=== PATIENT | male | born 2000 | race African-American/Black ===

== ENCOUNTER 2022-02-02 08:00 | Outpatient (CLI) | payer OTHER ==
[2022-02-02 21:58] LABS: CHLAMYDIA TRACHOMATIS DNA POSITIVE (NEGATIVE); NEISSERIA GONORRHOEAE DNA NEGATIVE (NEGATIVE)
[2022-02-03 04:09] LABS: HCV AB <0.1 s/co ratio (0.0-0.9); RPR Non Reactive (Non Reactive)
[2022-02-03 06:08] LABS: HIV SCREEN 4TH GENERATION Non Reactive (Non Reactive); HSV 2 IGG TYPE SPEC <0.91 index (0.00-0.90)
[2022-02-03 18:07] LABS: HSV IGM I/II COMBINATION <0.91 Ratio (0.00-0.90)
== END 2022-02-02 23:59 | disposition home or self-care (01) ==
LOC: LAB.N 08:00
PROVIDERS: ATTEND Family Medicine
DX: R36.9 Urethral discharge, unspecified (principal)
CPT/HCPCS: 36415; 86592; 86695; 86696; 86803; 87389; 87491; 87536; 87591; 87661

== ENCOUNTER 2022-02-27 08:00 | Outpatient (CLI) | payer OTHER ==
--- NOTE | 2022-02-28 09:11 | XRAY Report ---
PROCEDURE: Finger(s) LT INDICATIONS: L INDEX FINGER PX TECHNIQUE: AP hand, 3 views of the second finger(s) acquired. COMPARISON: None FINDINGS: Bones: Calcifications are noted at the angela of the second middle phalanx at the PIP joint. No suspicio us bony lesions. Soft tissues: No suspicious soft tissue calcifications. IMPRESSION: Calcifications at the base of the second middle phalanx at the PIP joint suggestive of avulsion fract ure. Reviewed by: Rachana De Jesus MD on 02/28/2022 9:10 AM PDT Approved by: Rachana De Jesus MD on 02/28/2022 9:10 AM PDT Station ID: [id number]
== END 2022-02-27 23:59 | disposition home or self-care (01) ==
LOC: DI.N 08:00
PROVIDERS: ATTEND Physician Assistant
DX: R22.30 Localized swelling, mass and lump, unspecified upper limb (principal)

== ENCOUNTER 2023-08-27 07:45 | Outpatient (CLI) | payer OTHER ==
--- NOTE | 2023-08-27 17:05 | XRAY Report ---
PROCEDURE: Knee 3 View LT INDICATIONS: SPRAIN OF LEFT KNEE LATERAL COLLATERAL LIGAMENT TECHNIQUE: 3 views of the knee(s) were acquired. COMPARISON: None. FINDINGS: Bones: No fractures or dislocations. No suspicious bony lesions. Soft tissues: No knee joint effusion. No suspicious soft tissue calcifications or masses. IMPRESSION: No acute bony abnormality. If there remains a high clinical concern for fracture, consider cross-sect ional imaging now. If pain persists, consider repeat x-ray in 10-14 days or cross-sectional imaging. Reviewed by: Yudelka Salcido MD on 08/27/2023 5:03 PM PST Approved by: Yudelka Salcido MD on 08/27/2023 5:03 PM PST Station ID: [id number]
== END 2023-08-27 08:00 | disposition home or self-care (01) ==
LOC: DI.N 07:45
PROVIDERS: ATTEND Physician Assistant Medical
DX: S83.422A Sprain of lateral collateral ligament of left knee, initial encounter (principal)

== ENCOUNTER 2024-05-15 11:48 | Emergency (ER) | payer OTHER ==
--- NOTE | 2024-05-15 11:57 | ED Physician Documentation ---
PD HPI MHE - Stated complaint Stated Complaint: SI - History obtained from History obtained from: Patient - Additional information Additional information: Otherwise healthy 24-year-old gentleman who is active duty in the [employer] started develop mostly auditory hallucinations about a month ago. They have become quite troubling to him and since this weekend he has developed thoughts of suicide with self-harm with plan to shoot himself and he does have access to a gun. He has not been under any mental health treatment and is taking no medications. He thinks someone in his family might have bipolar disorder but he does not know the details. PD PAST MEDICAL HISTORY - Present Medications Home Medications: Ambulatory Orders Medication Instructions Recorded Confirmed No Known Home Medications 05/15/24 05/15/24 - Allergies Allergies/Adverse Reactions: Allergies Allergy/AdvReac Type Severity Reaction Status Date / Time No Known Drug Allergies Allergy Verified 05/15/24 12:05 PD ED PE NORMAL - Vitals Vital signs reviewed: Yes - General General: Alert and oriented X 3, No acute distress - HEENT HEENT: PERRL, EOMI - Neck Neck: Supple, no meningeal sign, No bony TTP - Cardiac Cardiac: RRR, No murmur - Respiratory Respiratory: No respiratory distress, Clear bilaterally - Abdomen Abdomen: Non tender - Extremities Extremities: No deformity, No tenderness to palpate - Neuro Neuro: Alert and oriented X 3 Eye Opening: Spontaneous Motor: Obeys Commands Verbal: Oriented GCS Score: 15 - Psych Psych: Other (Mildly blunted affect with poor eye contact) Results - Vitals Vitals: Vital Signs - 24 hr 05/15/24 11:59 Temperature 36.7 C Heart Rate 69 Respiratory 20 Rate Blood Pressure 142/86 H O2 Saturation 100 Oxygen O2 Source Room air - Labs Labs: Laboratory Tests 05/15/24 05/15/24 05/15/24 12:05 12:26 12:26 WBC 3.4 L RBC 4.29 L Hgb 14.2 Hct 43.6 MCV 101.6 H MCH 33.1 H MCHC 32.6 RDW 12.6 Plt Count 207 MPV 9.8 Neut # (Auto) 1.6 Lymph # (Auto) 1.4 L Clay # (Auto) 0.3 Eos # (Auto) 0.1 Baso # (Auto) 0.0 Absolute Nucleated RBC 0.00 Nucleated RBC % 0.0 Sodium 135 Potassium 4.1 Chloride 102 Carbon Dioxide 29 Anion Gap 4.0 L BUN 13 Creatinine 1.3 Estimated GFR (MDRD) 82 L Glucose 94 Calcium 9.7 Magnesium 1.7 Total Bilirubin 0.3 AST 19 ALT 20 Alkaline Phosphatase 69 Total Creatine Kinase 285 H Total Protein 7.7 Albumin 4.4 Globulin 3.3 Albumin/Globulin Ratio 1.3 Lipase 70 TSH 1.38 Urine Color YELLOW Urine Clarity CLEAR Urine pH 7.0 Ur Specific Gipsy 1.020 Urine Protein NEGATIVE Urine Glucose (UA) NEGATIVE Urine Ketones NEGATIVE Urine Occult Blood NEGATIVE Urine Nitrite NEGATIVE Urine Bilirubin NEGATIVE Urine Urobilinogen 1 (NORMAL) Ur Leukocyte Esterase NEGATIVE Ur Microscopic Review NOT INDICATED Urine Culture Comments NOT INDICATED Salicylates < 1.5 Urine Opiates Screen NEGATIVE Ur Buprenorphine Scrn NEGATIVE Ur Oxycodone Screen NEGATIVE Urine Methadone Screen NEGATIVE Acetaminophen 0.1 Ur Barbiturates Screen NEGATIVE Ur Tricyclics Screen NEGATIVE Ur Phencyclidine Scrn NEGATIVE Ur Amphetamine Screen NEGATIVE U Methamphetamines Scrn NEGATIVE U Benzodiazepines Scrn NEGATIVE Urine Cocaine Screen NEGATIVE U Cannabinoids Screen NEGATIVE Ur Drug Screen Comment CUTOFF CONC BELOW: Ethyl Alcohol < 10.0 PD Medical Decision Making - ED course ED course: 24-year-old gentleman with new underlying psychosis causing SI with plan with legal intent. He is medically stable for transport. Workup demonstrates mild lymphopenia on CBC, normal chemistry panel, negative urinalysis and toxicology testing. He was accepted to [facility] pending COVID test by Dr. Leo Wilcox there at 1:24 PM. Departure - Departure Disposition: [facility] Hosp/Unit DC/Xfer Clinical Impression: Psychosis, Suicidal ideation Condition: Stable
[2024-05-15 12:18] LABS: BILIRUBIN,URINE NEGATIVE (NEGATIVE); GLUCOSE, URINE (UA) NEGATIVE (NEGATIVE); KETONES,URINE (UA) NEGATIVE (NEGATIVE); LEUKOCYTE ESTERASE, URINE NEGATIVE (NEGATIVE); NITRITE,URINE NEGATIVE (NEGATIVE); OCCULT BLOOD,URINE NEGATIVE (NEGATIVE); PROTEIN,URINE NEGATIVE (NEGATIVE); UROBILINOGEN,URINE 1 (NORMAL) E.U./dL (NORMAL)
[2024-05-15 12:29] LABS: AMPHETAMINE SCREEN,URINE NEGATIVE (NEGATIVE); BARBITURATE SCREEN,UR NEGATIVE (NEGATIVE); BENZODIAZEPINES SCREEN, URINE NEGATIVE (NEGATIVE); BUPRENORPHINE SCREEN, URINE NEGATIVE (NEGATIVE); CLARITY,URINE CLEAR (CLEAR); COCAINE SCREEN URINE NEGATIVE (NEGATIVE); METHADONE SCREEN, URINE NEGATIVE (NEGATIVE); METHAMPHETAMINES SCREEN, URINE NEGATIVE (NEGATIVE); OPIATE SCREEN, URINE NEGATIVE (NEGATIVE); OXYCODONE SCREEN, URINE NEGATIVE (NEGATIVE); THC CANNABINOID SCREEN, URINE NEGATIVE (NEGATIVE); TRICYCLIC ANTIDEPRESSANT,URINE NEGATIVE (NEGATIVE)
[2024-05-15 12:41] LABS: BASOPHILS % (AUTO) 0.6 %; EOSINOPHILS # (AUTO) 0.1 10^3/uL (0.0-0.7); EOSINOPHILS % (AUTO) 3.9 %; HCT - HEMATOCRIT 43.6 % (42.0-52.0); HGB - HEMOGLOBIN 14.2 g/dL (14.0-18.0); LYMPHOCYTES # (AUTO) 1.4 10^3/uL (1.5-3.5); LYMPHOCYTES % (AUTO) 40.5 %; MEAN CORPUSCULAR HEMOGLOBIN 33.1 pg (27.0-31.0); MEAN CORPUSCULAR HGB CONC 32.6 g/dL (32.0-36.0); MEAN CORPUSCULAR VOLUME 101.6 fL (80.0-94.0); MEAN PLATELET VOLUME 9.8 fL (7.4-11.4); MONOCYTES # (AUTO) 0.3 10^3/uL (0.0-1.0); NEUTROPHILS # (AUTO) 1.6 10^3/uL (1.5-6.6); PLT - PLATELET COUNT 207 10^3/uL (130-450); RED BLOOD COUNT 4.29 10^6/uL (4.70-6.10); RED CELL DISTRIBUTION WIDTH 12.6 % (12.0-15.0); WHITE BLOOD COUNT 3.4 x10^3/uL (4.8-10.8)
[2024-05-15 12:54] LABS: ACETAMINOPHEN 0.1 ug/mL; ALBUMIN 4.4 g/dL (3.2-5.5); ALBUMIN/GLOBULIN RATIO 1.3 (1.0-2.2); ALKALINE PHOSPHATASE 69 IU/L (42-121); ALT ALANINE AMINOTRANSFERASE 20 IU/L (10-60); AST ASPARTATE AMINOTRANSFERASE 19 IU/L (10-42); BILIRUBIN,TOTAL 0.3 mg/dL (0.2-1.0); BUN - BLOOD UREA NITROGEN 13 mg/dL (6-20); CALCIUM 9.7 mg/dL (8.5-10.3); CARBON DIOXIDE - CO2 29 mmol/L (21-32); CHLORIDE 102 mmol/L (101-111); CK- CREATINE KINASE 285 IU/L (30-223); CREATININE 1.3 mg/dL (0.6-1.3); ETOH - ETHANOL < 10.0 mg/dL; GFR - MDRD 82 (>89); GLUCOSE 94 mg/dL (74-104); LIPASE 70 U/L (11-82); MAGNESIUM 1.7 mg/dL (1.7-2.3); POTASSIUM 4.1 mmol/L (3.5-4.5); SODIUM 135 mmol/L (135-145); TOTAL PROTEIN 7.7 g/dL (6.4-8.9)
[2024-05-15 12:55] LABS: SALICYLATE < 1.5 mg/dL
[2024-05-15 13:05] LABS: THYROID STIMULATING HORMONE 1.38 uIU/mL (0.34-5.60)
[2024-05-15 18:30] VITALS: BP 121/68; O2SAT 99
== END 2024-05-15 18:33 ==
LOC: ED 11:48
DX: R45.851 Suicidal ideations (principal); F29 Unspecified psychosis not due to a substance or known physiological condition
CPT/HCPCS: 36415; 80053; 80143; 80179; 80306; 81001; 81003; 82077; 82550; 83690; 83735; 84443; 85025; 87086; 87635; 99284; 99285

== ENCOUNTER 2024-06-11 12:50 | Outpatient (CLI) | payer OTHER ==
--- NOTE | 2024-06-11 13:31 | Sleep Patient Instructions ---
Sleep Center Visit Summary - Patient Visit Information Reason for Visit: Initial consult for evaluation of sleep disordered breathing and other sleep issues. - Patient Instructions Instructions Attached: Sleep Study Additional Instructions: You will be completing a sleep study, either an in-lab polysomnography (PSG) or home sleep study (HST). You will follow-up in the sleep care office after the sleep study is completed to hear the results and talk about therapy, if needed. You will be called by our office staff to schedule this appointment, but you may contact us with any questions. - Clinic Information Contact: [facility] [address] [place] [address] [email or web address] T: [phone]
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
[2024-06-11 13:38] VITALS: BP 122/82; O2SAT 98
== END 2024-06-11 12:51 | disposition home or self-care (01) ==
LOC: SC 12:50
PROVIDERS: ATTEND Nurse Practitioner Family
DX: R06.83 Snoring (principal); R06.81 Apnea, not elsewhere classified; G47.8 Other sleep disorders; R51.9 Headache, unspecified; R41.89 Other symptoms and signs involving cognitive functions and awareness; G47.10 Hypersomnia, unspecified; E66.3 Overweight; Z68.25 Body mass index [BMI] 25.0-25.9, adult
CPT/HCPCS: 99203; 99212